=== PATIENT | female | born 1985 | race Caucasian/White ===

== ENCOUNTER 2019-07-27 10:58 | Emergency (ER) | payer OTHER ==
[~2019-07-27] VITALS: Ht 170.2 cm; Wt 131.5 kg
[~2019-07-27 10:58] MED LIST: ACETAMINOPHEN-1 EAC1 PO; ADDERALL 20 MG20 MG PO; ADDERALL 30 MG30 MG PO; AFRIN15 ML NS; ANTIVERT25 MG PO; AUGMENTIN 875875 MG PO; CIPROFLOXACIN500 M1 PO; IBUPROFEN 600600 M1; IBUPROFEN 800800 MG PO; MEDROLDOSEPACK PO; NAPROSYN500 MG PO; NOHOMEMEDICATIONS; NORCO 5-325 TA1 EACH PO; ONDANSETRON HCL4 M2 PO; PERCOCET 5-3251 EACH; PROAIR HFA8.5 GM INH; PROMETHAZINE D480 ML PO; ROBAXIN500 MG PO; TESSALON PERLE100 MG PO; TRAMADOL 50 MG50 MG PO; ZOFRAN4 MG PO
[2019-07-27] MEDS ORDERED: IBUPROFEN 800800 M1 PO (11:57)
[2019-07-27] MEDS ORDERED: CIPRODEX OTIC7.5 ML OTIC (11:57)
[2019-07-27] MEDS ORDERED: TRAMADOL 50 MG50 MG PO (11:57)
[2019-07-27 12:06] VITALS: BP 143/100
== END 2019-07-27 12:07 | disposition home or self-care (01) ==
LOC: M.ERS 10:58
DX: H60.91 Unspecified otitis externa, right ear (principal); F17.210 Nicotine dependence, cigarettes, uncomplicated; Z98.890 Other specified postprocedural states; Z98.51 Tubal ligation status; Z90.49 Acquired absence of other specified parts of digestive tract

== ENCOUNTER 2021-12-24 20:12 | Emergency (ER) | payer OTHER ==
[~2021-12-24] VITALS: Ht 170.2 cm; Wt 108.9 kg
[~2021-12-24 20:12] MED LIST changes: +CIPRODEX OTIC7.5 ML OTIC; +IBUPROFEN 800800 M1 PO
[2021-12-24 20:56] LABS: ABSOLUTE EOSINOPHILS 0.1 thou/uL (0.0-0.7); ABSOLUTE LYMPHOCYTES 3.7 thou/uL (0.8-5.3); ABSOLUTE MONOCYTES 0.6 thou/uL (0.0-1.2); ABSOLUTE NEUTROPHILS 1.7 thou/uL (1.6-8.1); BASOPHILS 0.6 %; EOSINOPHILS 2.2 %; HEMOGLOBIN 14.1 gm/dL (12.0-15.0); LYMPHOCYTES 59.6 %; MCHC 33.5 g/dL (28.0-37.0); MCV 80.5 fL (80.0-100.0); MONOCYTES 10.3 %; MPV 9.4 fl. (7.2-11.1); NUCLEATED RBCS 0 /100WBC; PLATELET COUNT* 212 thou/uL (150-400); POLYS 27.3 %; RBC 5.22 mil/uL (4.20-5.00); RDW-CV 13.9 % (10.5-14.5); WBC 6.2 thou/uL (4.0-11.0)
[2021-12-24 21:04] LABS: CALCIUM 8.7 mg/dL (8.5-10.1); CREATININE 1.1 mg/dL (0.6-1.3); POTASSIUM 4.3 mmol/L (3.5-5.1)
[2021-12-24 21:15] LABS: ALBUMIN 3.6 g/dL (3.4-5.0); MAGNESIUM 1.9 mg/dL (1.8-2.4); TOTAL BILIRUBIN 0.1 mg/dL (<0.1-1.0); TOTAL PROTEIN 7.3 g/dL (6.4-8.2)
[2021-12-24 21:34] LABS: URINE BILIRUBIN NEGATIVE (Negative); URINE BLOOD NEGATIVE (Negative); URINE CLARITY CLEAR; URINE COLOR YELLOW; URINE GLUCOSE-RANDOM NEGATIVE (Negative); URINE KETONES NEGATIVE (Negative); URINE LEUKOCYTES-REFLEX NEGATIVE (Negative); URINE NITRITE-REFLEX NEGATIVE (Negative); URINE PROTEIN NEGATIVE (Negative); URINE SPECIFIC GRAVITY >= 1.030 (1.005-1.030); URINE UROBILINOGEN 0.2 E.U./dl (0.2-1.0)
[2021-12-24] MEDS ORDERED: PREDNISONE 20 M20 MG PO (21:48)
[2021-12-24] MEDS ORDERED: PROAIR HFA8.5 GM INH (21:48)
[2021-12-24 21:54] VITALS: BP 108/58
--- NOTE | 2021-12-25 09:52 | EKG ---
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
== END 2021-12-24 21:54 | disposition home or self-care (01) ==
LOC: M.ERS 20:12
PROVIDERS: Physician Assistant Medical
DX: J40 Bronchitis, not specified as acute or chronic (principal); Z20.822 Contact with and (suspected) exposure to COVID-19; Z90.49 Acquired absence of other specified parts of digestive tract; Z98.51 Tubal ligation status; Z98.890 Other specified postprocedural states